=== PATIENT | female | born 1950 | race Caucasian/White ===

== ENCOUNTER 2021-05-14 14:35 | Outpatient (CLI) | payer MEDICARE | END 2021-05-14 14:36 | disposition home or self-care (01) | LOC: CSHULT 14:35 | PROVIDERS: ATTEND Family Medicine | DX: I80.02 Phlebitis and thrombophlebitis of superficial vessels of left lower extremity (principal) ==

== ENCOUNTER 2022-08-05 09:16 | Outpatient (CLI) | payer MEDICARE | END 2022-08-05 09:17 | disposition home or self-care (01) | LOC: CSHMAMMO 09:16 | PROVIDERS: ATTEND Family Medicine | DX: Z12.31 Encounter for screening mammogram for malignant neoplasm of breast (principal); Z13.820 Encounter for screening for osteoporosis; M85.80 Other specified disorders of bone density and structure, unspecified site | CPT/HCPCS: 77063; 77067; 77080 ==

== ENCOUNTER 2024-04-29 10:21 | Emergency (ER) | payer MEDICARE ==
[2024-04-29 11:14] LABS: #Basophils 0.04 10x3/uL (0.0-0.2); #Eosinophils 0.03 10x3/uL (0.0-0.5); #Monocytes 1.04 10x3/uL (0.0-1.1); #Neutrophils 15.01 10x3/uL (1.5-8.4); %Basophils 0.2 % (0.0-2.0); %Eosinophils 0.2 % (0.0-6.0); %Lymphocytes 8.3 % (18.0-47.0); %Monocytes 5.9 % (0.0-10.0); Hematocrit 35.8 % (34.9-44.5); Hemoglobin 11.7 g/dL (12.0-15.5); Mean Corpuscular HGB CONC 32.7 g/dL (32.0-36.0); Mean Corpuscular Hemoglobin 30.1 pg (27.0-33.0); Mean Platelet Volume 9.5 fL (7.4-10.4); Platelet Count 363 10x3/uL (150-450); RBC Distribution Width 13.4 % (11.5-14.5); Red Blood Cell (RBC) Count 3.89 10x6/uL (3.90-5.03); White Blood Cell (WBC) Count 17.66 10x3/uL (3.5-10.5)
[2024-04-29 11:30] LABS: ALT (SGPT) 7 U/L (8-55); AST (SGOT) 18 U/L (5-34); Albumin 3.9 g/dL (3.4-4.8); Alkaline Phosphatase 30 U/L (40-110); Anion Gap 17 mmol/L (10-20); BUN (Urea Nitrogen) 11 mg/dL (9.8-20.1); Bilirubin, Total 0.9 mg/dL (0.2-1.2); Calc. Creatinine Clearance 0 mL/min (70-130); Calcium 9.4 mg/dL (7.8-10.44); Carbon Dioxide 20 mmol/L (23-31); Chloride 101 mmol/L (98-107); Estimated GFR 61; Globulin 2.2 g/dL (2.4-3.5); Glucose 115 mg/dL (83-110); Lipase 12 U/L (8-78); Magnesium 1.2 mg/dL (1.6-2.6); Potassium 4.3 mmol/L (3.5-5.1); Protein, Total 6.1 g/dL (5.8-8.1); Sodium 134 mmol/L (136-145)
[2024-04-29 11:32] LABS: Troponin I 0.017 ng/mL (< 0.028)
[2024-04-29] MEDS ORDERED: Magnesium 2 GM/50 ML BAG (IN WATER) ONE (12:04)
== END 2024-04-29 12:46 | disposition home or self-care (01) ==
LOC: CSHERS 10:21
DX: E86.0 Dehydration (principal); E83.42 Hypomagnesemia; E11.9 Type 2 diabetes mellitus without complications; I10 Essential (primary) hypertension
CPT/HCPCS: 80053; 83690; 83735; 84484; 85025; 85379; 93005; J3475; 96374

== ENCOUNTER 2025-02-22 12:44 | Emergency (ER) | payer MEDICARE ==
[2025-02-22 13:43] LABS: #Basophils 0.04 10x3/uL (0.0-0.2); #Eosinophils 0.16 10x3/uL (0.0-0.5); #Monocytes 0.90 10x3/uL (0.0-1.1); #Neutrophils 3.38 10x3/uL (1.5-8.4); %Basophils 0.7 % (0.0-2.0); %Eosinophils 2.6 % (0.0-6.0); %Lymphocytes 26.4 % (18.0-47.0); %Monocytes 14.8 % (0.0-10.0); %Neutrophils 55.3 % (40.0-75.0); Hematocrit 34.2 % (34.9-44.5); Hemoglobin 11.4 g/dL (12.0-15.5); Mean Corpuscular Hemoglobin 30.1 pg (27.0-33.0); Mean Corpuscular Volume 90.2 fL (81.6-98.3); Platelet Count 304 10x3/uL (150-450); Red Blood Cell (RBC) Count 3.79 10x6/uL (3.90-5.03); White Blood Cell (WBC) Count 6.10 10x3/uL (3.5-10.5)
[2025-02-22 13:53] LABS: ALT (SGPT) 9 U/L (Less than 34); AST (SGOT) 24 U/L (11-34); Albumin 4.0 g/dL (3.1-4.5); Alkaline Phosphatase 38 U/L (40-110); Anion Gap 17 mmol/L (10-20); BUN (Urea Nitrogen) 25 mg/dL (9.8-20.1); Bilirubin, Total 0.3 mg/dL (0.3-1.2); Calc. Creatinine Clearance 0 mL/min (70-130); Calcium 9.2 mg/dL (7.8-10.44); Carbon Dioxide 22 mmol/L (23-31); Chloride 104 mmol/L (98-107); Globulin 2.6 g/dL (2.4-3.5); Glucose 88 mg/dL (83-110); Magnesium 2.1 mg/dL (1.6-2.6); Potassium 4.4 mmol/L (3.5-5.1); Sodium 139 mmol/L (136-145)
[2025-02-22 13:58] LABS: Troponin I Less than 0.010 ng/mL (< 0.028)
[2025-02-22 16:11] LABS: Glucose, Urine (Dipstick) Normal (Negative); Leukocyte Negative (Negative); Protein, Urine (Dipstick) Negative (Neg-Trace); Specific Gravity, Urine 1.010 (1.005-1.030)
[2025-02-22 16:22] LABS: CAUTI Indications for Culture Pelvic or flank pain; RBC/HPF None Seen HPF (0-3); WBC/HPF 0-3 HPF (0-3)
[2025-02-22 16:23] LABS: Bacteria/HPF 1+ HPF (None Seen); Urine Culture Reflex No No; Yeast-Budding 1+ HPF (None Seen)
== END 2025-02-22 16:56 | disposition home or self-care (01) ==
LOC: CSHERS 12:44
DX: E86.0 Dehydration (principal); E11.9 Type 2 diabetes mellitus without complications; I10 Essential (primary) hypertension
CPT/HCPCS: 71045; 80053; 81001; 83735; 83880; 84443; 84484; 85025; 87428; 93005